=== PATIENT | female | born 1945 | race Caucasian/White ===

== ENCOUNTER → 2017-12-13 | Outpatient (REF) | LOC: ZLAB.WCH 14:37 | DX: Z01.89 Encounter for other specified special examinations (principal) ==

== ENCOUNTER → 2018-03-08 | Outpatient (REF) | LOC: ZLAB.WCH 15:46 | DX: Z01.89 Encounter for other specified special examinations (principal) ==

== ENCOUNTER → 2018-06-19 | Outpatient (REF) | LOC: ZLAB.WCH 18:16 | DX: Z01.89 Encounter for other specified special examinations (principal) ==

== ENCOUNTER → 2018-09-20 | Outpatient (REF) | LOC: ZLAB.WCH 16:07 | DX: Z01.89 Encounter for other specified special examinations (principal) ==

== ENCOUNTER → 2021-02-20 | Outpatient (REF) ==
--- NOTE | 2021-02-24 09:28 | NUR ---
Patient refusing EEG, spoke with patient in detail about EEG with patients in the room. Patient stated she see's a different private MD and wanted to speak with them. I explained that her doctor would likely not be able to see her here, but would need to speak to their RN about it more. Patient still wanted to wait and discuss. I spoke with RN about the patient refusing.
== END ==
LOC: COL.CARD 15:28
DX: Z01.818 Encounter for other preprocedural examination (principal)